=== PATIENT | female | born 1990 | race Caucasian/White ===

== ENCOUNTER 2017-02-21 20:16 | Emergency (ER) | payer OTHER ==
[2017-02-21] MEDS ORDERED: HYDROcod/ACET 5/325 Prepack 6 PO STA (20:55)
[2017-02-21] MEDS ORDERED: ERYTHROMYCIN OPHTH OINT 1 GM TUBE RIGHTEYE STA (20:55)
[2017-02-21] MEDS ORDERED: HYDROcod/ACET 5/325 Prepack 6 PO ONE (21:00)
[2017-02-21] MEDS ORDERED: ERYTHROMYCIN OPHTH OINT 1 GM TUBE ONE (21:00)
== END 2017-02-21 21:08 | disposition home or self-care (01) ==
DX: S05.01XA Injury of conjunctiva and corneal abrasion without foreign body, right eye, initial encounter (principal); W50.4XXA Accidental scratch by another person, initial encounter; Y93.F9 Activity, other caregiving; Y92.210 Daycare center as the place of occurrence of the external cause; Y99.0 Civilian activity done for income or pay; R03.0 Elevated blood-pressure reading, without diagnosis of hypertension
CPT/HCPCS: 99283; J3490

== ENCOUNTER 2020-01-02 14:23 | Outpatient (CLI) | payer OTHER ==
--- NOTE | 2020-01-03 23:24 | Ultrasound Report ---
Reason: GESTATIONAL DIABETES Procedure Date: 01/02/2020 Accession Number: [id number] / [id number] Procedure: US - OB F/U or Repeat CPT Code: Final Report FULL RESULT: EXAM: FOLLOW-UP OBSTETRICAL ULTRASOUND EXAM DATE: 01/02/2020 03:19 PM. CLINICAL HISTORY: GESTATIONAL DIABETES. COMPARISON: Prior report, 09/16/2019. TECHNIQUE: Real-time sonographic evaluation of the fetus performed by the draw fire operator. Multiple arborist representative static images were saved for review. DATING: Established EGA 35 weeks 3 days with HUSAM 02/03/2020 based on LMP. EGA 34 weeks 5 days with HUSAM 02/08/2020 based on prior ultrasound. EGA 34 weeks 3 days with HUSAM 02/10/2020 based on the current ultrasound. GENERAL EVALUATION [place] . Cardiac activity: 136 bpm. movement: Visualized. Presentation: Cephalic. Placenta: Posterior left position. Amniotic fluid: Normal. MANUEL 8.2 cm. MVP 2.7 cm. BIOMETRY Bi-Parietal Diameter (BPD): 8.7 cm, 35 weeks 1 day Head Circumference (HC): 31.2 cm, 34 weeks 6 days Abdominal Circumference (AC): 30.4 cm, 34 weeks 3 days Femur Length (FL): 6.5 cm, 33 weeks 2 days Estimated Weight: 2377 g, 18 percentile for 35 weeks 3 days. MATERNAL STRUCTURES Cervix: Long and closed, measuring 4.8 cm on transabdominal images. Small complex cystic focus in the cervix measuring 0.9 x 1.3 x 1.1 cm. IMPRESSION: 1. Bonilla live intrauterine with gestational age 35 weeks 3 days based on stated dates. 2. Estimated weight is within expected limits for assigned dating. 3. Normal interval growth compared to 09/16/2019. 4. MANUEL 8.2 cm. RADIA
== END 2020-01-02 14:24 | disposition home or self-care (01) ==
LOC: DI 14:23
PROVIDERS: ATTEND Nurse Practitioner Obstetrics & Gynecology
DX: O24.410 Gestational diabetes mellitus in pregnancy, diet controlled (principal); Z3A.35 35 weeks gestation of pregnancy
CPT/HCPCS: 76816

== ENCOUNTER 2020-01-05 23:26 | Outpatient (CLI) | payer OTHER ==
[2020-01-06 00:13] VITALS: BP 96/75
--- NOTE | 2020-01-06 00:16 | Labor Flowsheet ---
Labor Flowsheet Datetime Report Generated by CPN: 01/06/2020 00:16 Datetime: 01/06/2020 00:12 VITAL SIGNS NBP Sys/Cyndee/Mean (mmHg): 96 : 75 : 79 Pulse: 106 Datetime: 01/06/2020 00:09 SpO2 (%): 98
--- NOTE | 2020-01-06 00:44 | PROVIDER PROGRESS NOTE ---
- HPI Chief Complaint: Other Current : Current EDU 02/03/20 Gestation 35 Weeks and 6 Days 3 Para 1 Vital Signs Temperature 36.5 C 01/05/20 23:36 Heart Rate 99 01/05/20 23:36 Respiratory Rate 16 01/05/20 23:36 Blood Pressure 111/69 01/05/20 23:36 O2 Saturation 98 01/05/20 23:36 Temperature 36.8 C 01/06/20 00:12 Heart Rate 107 H 01/06/20 00:12 Respiratory Rate 16 01/06/20 00:12 Blood Pressure 96/75 01/06/20 00:12 O2 Saturation 96 01/06/20 00:12 - Procedures OB Procedure Performed: NST Diagnosis/Indication for NST: Other - Plan Plan: Neda presents to [facility] with complaints of feeling significantly increased vaginal pressure when getting up to go to the bathroom a couple of hours ago. She reports after urinating she was wiping and felt like her vagina/labia was very swollen and felt a bulge in her vagina. She denies vaginal bleeding or leakage of fluid and reports +FM. She reports occasional contractions but nothing consistently or overly uncomfortable. She delivered her first baby at 41+wks. Upon examination there is noted to be a swollen area immediately inside vaginal introitus extending into the vaginal canal towards pt left that is slightly bluish in color and tender upon palpation. Pt reports the discomfort and pressure at affected area seems to be aggravated by sitting on the toilet. NST reactive. FHR baseline 130s, moderate variability, + accels, no decels. 1-2 contractions appreciated via tocometry which pt appreciates but rates as very mild. DIAGNOSIS: Vulvar variscosity Advised V2 maternity support belt or doubling up with a pad and wearing good fitting underwear. Advised ice and witch radha to affected area. Avoid constipation - stool softener if needed. Given precautions to return if she feels the discomfort is worsening or if she develops a fever or radiating pain. Consider physician consultation in office. Return for scheduled office visit or sooner PRN. Pt verbalized understanding and agrees to above plan. She denies further questions or concerns at this time.
== END 2020-01-06 00:23 | disposition home or self-care (01) ==
LOC: WFO 23:26 → FBP 23:28 → WFO 01-06 00:23
PROVIDERS: ATTEND Nurse Practitioner Obstetrics & Gynecology
DX: O22.13 Genital varices in pregnancy, third trimester (principal); Z3A.35 35 weeks gestation of pregnancy
CPT/HCPCS: 99213

== ENCOUNTER 2020-01-08 08:00 | Outpatient (CLI) | payer OTHER ==
[2020-01-08 23:01] LABS: TRICHOMONAS VAGINALIS DNA NEGATIVE (NEGATIVE)
== END 2020-01-08 08:01 | disposition home or self-care (01) ==
LOC: LAB.R 08:00
PROVIDERS: ATTEND Nurse Practitioner Obstetrics & Gynecology
DX: Z36.85 Encounter for antenatal screening for Streptococcus B (principal)
CPT/HCPCS: 87491; 87591; 87661; 87797

== ENCOUNTER 2020-01-27 13:51 | Inpatient (IN) | payer OTHER ==
[2020-01-27] MEDS ORDERED: SODIUM CHLORIDE FLUSH 0.9% 10 ML SYRINGE IVP PRN (14:37)
[2020-01-27] MEDS: LACTATED RINGERS 1,000 ML IV SCH (14:53)
[2020-01-27 14:55] LABS: BASOPHILS % (AUTO) 0.3 %; EOSINOPHILS % (AUTO) 0.4 %; HGB - HEMOGLOBIN 12.7 g/dL (12.0-16.0); LYMPHOCYTES # (AUTO) 1.4 10^3/uL (1.5-3.5); MEAN CORPUSCULAR HGB CONC 34.1 g/dL (32.0-36.0); MEAN CORPUSCULAR VOLUME 93.7 fL (81.0-99.0); MEAN PLATELET VOLUME 11.1 fL (7.9-10.8); MONOCYTES # (AUTO) 0.5 10^3/uL (0.0-1.0); MONOCYTES % (AUTO) 6.4 %; NEUTROPHILS # (AUTO) 5.3 10^3/uL (1.5-6.6); NEUTROPHILS % (AUTO) 73.3 %; PLT - PLATELET COUNT 194 10^3/uL (130-450); RED BLOOD COUNT 3.97 10^6/uL (4.20-5.40); RED CELL DISTRIBUTION WIDTH 14.2 % (12.0-15.0); WHITE BLOOD COUNT 7.2 x10^3/uL (4.8-10.8)
--- NOTE | 2020-01-27 15:28 | HISTORY & PHYSICAL EXAMINATION ---
Admit History - Visit Reason Visit Reason: Other - : 3 Parity: 1 Premature: 0 Ectopic: 0 : 1 Care: positive: [facility] Risk/History: positive: Labor induction Complications This : positive: Gestational diabetes Smoking Status: Never smoker - Mother's Labs Mother's Blood Type: positive: O Mother's RH: positive: Positive GBS: positive: Group B Strep Positive Rubella Status: positive: Immune - Other Maternal History Other Maternal History: Neda is a 29yo at 39.0wks gestation by LMP and confirmed by 10.5wk Ultrasound who presents for pre-induction cervical ripening for Gestational Diabetes which is well controlled with diet. She had an otherwise normal course of care with [facility]. She is not experiencing VB, LOF, or contractions (reports some mild, intermittent tightening consistent with [place]). Dating Criteria: LMP: 02/03/2020 Initial US: 10.5wks 02/03/2020 FAS: WNL. Placenta posterior, no previa. Three vessel cord. Size consistent with dating. OB Hx G1 2013- molar requiring D&C G2-2018- 7# female G3-Current No known Allergies Medications: vitamins Other PRN comfort measures Medical History: Bilateral sciatica Molar Surgical History: Dilation and Curettage 2013 Family History: None relevant Social History: Never smoker, no ETOH Spouse: Active Duty Labs: 0 pos/Rubella Immune GC/CT neg Genetic Screening- Serum Intg- neg/ CF- neg Glucola: 165; 3h GTT diagnosis- GDM GBS- POS Immunizations: Tdap given Physical Exam: Head: normochephalic, atraumatic Heart: No edema Resp: No resp distress, cough, sore throat, or work of breathing Abdomen: gravid, soft, nontender EFW 7.5# by leronan Vertex by BSUS SVE: closed/75%/soft/posterior/ballotable No contractions FHT: 130s/moderate variability/pos accels/no decels Assessment: 29yo at 39.0wks gestation A1 GDM Medical induction of labor FHTs Cat 1 GBS pos Plan: Admit to Observation for pre-induction cervical ripening until active labor, SROM, AROM, epidural, or pitocin. 50mcg BC Miso every 4 hours per protocol Continuous fht/utx monitoring Consider placement of cervical ripening balloon at next check May eat/drink/ambulate as desired. Epidural PRN. Anticipate Meds/Allgy - Home Medications Home Medications: Ambulatory Orders Medication Instructions Recorded Confirmed Erythromycin Base [Erythromycin] 1 applic OP 5XD 7 Days oint...g. 02/21/17 - Allergies Allergies/Adverse Reactions: Allergies Allergy/AdvReac Type Severity Reaction Status Date / Time No Known Drug Allergies Allergy Verified 02/21/17 20:27 Review of Systems - Constitutional Constitutional: denies: Fatigue, Fever, Chills - Eyes Eyes: denies: Pain, Blurred vision, Spots in vision, Dipolpia - Ears, Nose & Throat Ears, Nose & Throat: denies: Hearing loss, Nasal discharge, Nosebleeds, Sore throat - Cardiovascular Cariovascular: denies: Irregular heart rate, Palpitations, Chest pain - Respiratory Respiratory: denies: Cough, Wheezing, SOB at rest, SOB with exertion - Gastrointestinal Gastrointestinal: denies: Abdominal pain - Neurological Neurological: denies: General weakness, Focal weakness, Headache, Dizziness - Psychiatric Psychiatric: denies: Depression, Anxiety Plan for Labor - Plan For Labor I expect patient to be DC'd or transferred within 96 hours.: Yes
[2020-01-27] MEDS: miSOPROStoL 100 MCG TABLET BC SCH ×2 (15:58→22:09)
[2020-01-28] MEDS: LACTATED RINGERS 1,000 ML IV SCH ×2 (00:17→07:35)
[2020-01-28] MEDS ORDERED: AMPICILLIN 2 GM in SODIUM CHLORIDE 0.9% MINIBAG 100 ML IV ONE (01:48)
[2020-01-28] MEDS ORDERED: ROPIVACAINE 0.2% 200 MG/100 ML BAG EP ONE (01:59)
[2020-01-28] MEDS ORDERED: OXYTOCIN/SODIUM CHLORIDE 500 ML IV SCH (02:00)
[2020-01-28] MEDS ORDERED: ROPIVACAINE 0.2% PF 20ML VIAL ONE (02:00)
[2020-01-28] MEDS ORDERED: NALOXONE 0.4 MG/ML VIAL IVP PRN (02:42)
[2020-01-28] MEDS ORDERED: METOCLOPRAMIDE 10 MG/2 ML VIAL IVP PRN (02:42)
[2020-01-28] MEDS ORDERED: ROPIVACAINE 0.2% 200 MG/100 ML BAG EP PRN (02:42)
[2020-01-28] MEDS ORDERED: diphenhydrAMINE INJ 50 MG/ML VIAL IVP PRN (02:42)
[2020-01-28] MEDS ORDERED: ONDANSETRON 4 MG/2 ML VIAL IVP PRN (02:42)
[2020-01-28] MEDS ORDERED: ePHEDrine 50 MG/ML VIAL IVP PRN (02:42)
[2020-01-28] MEDS ORDERED: NALBUPHINE 10 MG/ML AMP IVP PRN (02:42)
[2020-01-28] MEDS ORDERED: LACTATED RINGERS 500 ML IV ONE ×2 (02:42→14:42)
--- NOTE | 2020-01-28 02:45 | ANESTHESIA ---
Pre-Anesthesia VS, & Labs - Diagnosis term labor, IUP - Procedure vaginal delivery Vital Signs: Temp Pulse Resp BP Pulse Ox 36.7 C 80 16 119/73 01/28/20 01:00 01/28/20 01:00 01/28/20 01:00 01/28/20 01:00 Height 5 ft 3 in Weight (kg) 72.575 kg Body Mass Index 22.6 - NPO Last Fluid Intake: t/o noc Last Food Intake: 6h - Is Patient ?: Yes - Lab Results Current Lab Results: Laboratory Tests 01/27/20 14:30: WBC 7.2, RBC 3.97 L, Hgb 12.7, Hct 37.2, MCV 93.7, MCH 32.0 H, MCHC 34.1, RDW 14.2, Plt Count 194, MPV 11.1 H, Neut # (Auto) 5.3, Lymph # (Auto) 1.4 L, [place] # (Auto) 0.5, Eos # (Auto) 0.0, Baso # (Auto) 0.0, Absolute Nucleated RBC 0.00, Nucleated RBC % 0.0 Lab results reviewed: Yes Fish Bones: 01/27/20 14:30 Home Medications and Allergies Active Medications Lactated Ringer's (Lr) 1,000 mls @ 100 mls/hr IV .Q10H SOLANGE Last Admin: 01/28/20 00:17 Dose: 100 mls/hr Ampicillin Sodium 2 gm/ Sodium (Chloride) 100 mls @ 100 mls/hr IV ONCE ONE Stop: 01/28/20 02:47 Ampicillin Sodium 1 gm/ Sodium (Chloride) 100 mls @ 200 mls/hr IV Q4H SOLANGE Oxytocin/Sodium Chloride (Pitocin/Sodium Chloride) 500 mls @ 1 mls/hr IV TITR SOLANGE; Protocol Misoprostol (Cytotec) 50 mcg BC Q4H SOLANGE Last Admin: 01/27/20 22:09 Dose: 50 mcg Sodium Chloride (Normal Saline Flush 0.9%) 10 ml IVP PRN PRN PRN Reason: NEEDED PER PROVIDER ORDERS Last Admin: 01/27/20 14:30 Dose: 10 ml Allergies/Adverse Reactions: Allergies Allergy/AdvReac Type Severity Reaction Status Date / Time No Known Drug Allergies Allergy Verified 02/21/17 20:27 Anes History & Medical History - Anesthetic History Anesthesia Complications: reports: No previous complications Family history of Anesthesia Complications: Denies Family history of Malignant Hyperthermia: Denies - Medical History Smoking Status: Never smoker - Surgical History Gynecologic: Dilation and currettage - Obstetrical History : 3 Parity: 1 Events: positive: Labor induction Complications: positive: Gestational diabetes Exam General: Alert, Oriented x3, Cooperative Dental: WNL Mouth Opening: Greater than 4 Fingerbreadths Neck Mobility: Normal Mallampati classification: I Thyromental Distance: greater than 6 cm Respiratory: No respiratory distress Cardiovascular: Regular rate Neurological: Normal speech Mental/Cognitive Status: Alert/Oriented X3, Normal for patient Cognitive Status: Within normal limits Plan Anesthesia Type: Epidural Consent for Procedure(s) Verified and Reviewed: Yes Code Status: Attempt Resuscitation ASA classification: 2-Mild systemic disease Is this case an emergency?: No
[2020-01-28] MEDS: AMPICILLIN 1 GM in SODIUM CHLORIDE 0.9% MINIBAG 100 ML IV SCH ×2 (06:49→10:58)
--- NOTE | 2020-01-28 07:15 | PROVIDER PROGRESS NOTE ---
Labor Progress Note - Uterine Monitoring Uterine Monitoring Mode: positive: External toco Contraction Frequency (min/apart): 3-4 Contraction Intensity: positive: Moderate Uterine Resting Tone: positive: Soft - Monitoring Monitor Mode: positive: External ultrasound Heart Rate Baseline: 135 Heart Rate Variability: positive: Moderate (6-25 bmp) Accelerations: positive: Present, 15x15 Decelerations: positive: None Strip Review: positive: Category I - Vaginal Exam Dilation (in cm): 5 Effacement (%): 80 Station: -3 Cervical Position: Anterior - Labor Progress Note Labor Progress Note/Additional Text: S: Pt resting in bed, reports satisfaction with her epidural. supportive at the bedside. O: Uterine contractions regular and moderate strength. FHTs (see above). Afebrile. Pitocin started at 1mU/min at 0650. SVE: 5/80%/-3/soft/anterior A: 29yo at 39.1wks gestation GBS Positive Status post 2 doses misoprostol for IOL r/t GDM FHTs Cat I Uterine contractions moderate P: Continue to augment labor with Pitocin administration per protocol Consider AROM when station appropriate Continue GBS prophylaxis per protocol Continuous monitoring Clear liquids Continue epidural for pain management Anticipate
--- NOTE | 2020-01-28 08:58 | PROVIDER PROGRESS NOTE ---
Labor Progress Note - Uterine Monitoring Uterine Monitoring Mode: positive: External toco Contraction Frequency (min/apart): 2-3 Contraction Intensity: positive: Moderate - Monitoring Monitor Mode: positive: External ultrasound Heart Rate Baseline: 155 Heart Rate Variability: positive: Moderate (6-25 bmp) Accelerations: positive: Present, 15x15 Decelerations: positive: Late, Variable, Intermittent (<50% x20 min) Strip Review: positive: Category I - Vaginal Exam Dilation (in cm): 6 Effacement (%): 80 Station: 0 Cervical Position: Anterior - Labor Progress Note Labor Progress Note/Additional Text: S: Comfortable with epidural. Rotating to right side as she has been lying on her left side. She is feeling well and denies concerns or complaints at this time. supportive at the bedside. O: FHR baseline 150s, moderate variability, + accels, intermittent late and variable decelerations. Brief periods of and maternal tachycardia - overall reassuring. Contractions palpate moderate every 2-3 minutes with soft resting tone. Pitocin @ 1mU/mL SVE 6/80/0, vertex AROM moderate amount of clear fluid at 0852 A: 29yo G3)1011 @ 39.1wks gestation A1GDM GBS pos FHR Category II - overall reassuring P: Continue pitocin for IOL with titration per protocol Continue GBS prophylaxis per protocol Continuous monitoring Anticipate .
--- NOTE | 2020-01-28 10:11 | PROVIDER PROGRESS NOTE ---
Labor Progress Note - Uterine Monitoring Uterine Monitoring Mode: positive: External toco Contraction Frequency (min/apart): 2-3 Contraction Intensity: positive: Strong Uterine Resting Tone: positive: Soft - Monitoring Monitor Mode: positive: External ultrasound Heart Rate Baseline: 145 Heart Rate Variability: positive: Moderate (6-25 bmp) Accelerations: positive: Present, 15x15 Decelerations: positive: None Strip Review: positive: Category I - Vaginal Exam Dilation (in cm): 8-9 Effacement (%): 100 Station: 0 Cervical Position: Anterior - Labor Progress Note Labor Progress Note/Additional Text: S: Comfortable with epidural. Positioned to high thrones position after examination. Feeling well. supportive at the bedside. O: FHR baseline 140s, moderate variability, + accels, recurrent early decelerations - overall reassuring Contractions palpate strong every 2-3 minutes with soft resting tone SVE 8-9/100/0, vertex A: 29yo @ 39.1wks gestation A1GDM FHR Category I GBS positive P: Continue pitocin with titration per protocol Continue GBS prophylaxis per protocol Continuous monitoring Encouraged position changes in bed with peanut ball Anticipate
[2020-01-28] MEDS ORDERED: WITCH HAZEL/GLYCERIN 1 PAD TOP PRN (11:50)
[2020-01-28] MEDS ORDERED: HYDROCORTISONE 1% CREAM 28 GM TUBE PR PRN (11:50)
[2020-01-28] MEDS ORDERED: OXYTOCIN/SODIUM CHLORIDE 500 ML IV PRN (11:51)
--- NOTE | 2020-01-28 12:00 | DELIVERY NOTE ---
Delivery Note - Labor Labor: positive: Augmented by ARM, Induced by oxytocin - Delivery Method Infant Delivery Method: positive: Spontaneous vaginal delivery - Cervical Ripening Method Cervical Ripening Method: positive: Balloon device - Presentation Presentation: positive: Vertex, VIVI - left occiput anterior - Nuchal Cord Nuchal Cord: positive: None - Amniotic Fluid Description Amniotic Fluid Description: positive: Clear - Episiotomy Type Episiotomy Type: positive: None - Laceration Laceration: positive: None - Delivery Outcome Delivery Outcome: positive: Livebirth - [place] : positive: Placed in direct skin contact with mother, Stimulated, Warmed, [place] used Beatty sex: positive: Male - Cord Cord: positive: 3 vessels - Placenta Placenta: positive: Intact, Spontaneous - Estimated Blood Loss Estimated Blood Loss (in cc): 200 - Post Delivery Events Post Delivery Events: positive: No post delivery events - Delivery Comments (Free Text/Narrative) Delivery Comments (Free Text/Narrative): Labor: This 29yo @ 39.1wks gestation by LMP c/w first trimester ultrasound presented on 01/27/2020 @ 1400 for medication induction of labor secondary to gestational diabetes which remained well controlled through the duration of her . SVE 2/50/-3, posterior, and vertex. Pt received 2 total doses of 50mcg BC misoprostol for effective pre-induction cervical ripening. Epidural placed per maternal request. Pitocin initiated for labor augmentation with a maximum infusion rate of 1mU/mL. AROM occurred at approximately 0852 and and was noted to be a moderate amount of clear fluid. FHR pattern demonstrated Category I pattern with intermittent periods of Category II but was overall reassuring. Normal labor course. The patient progressed to c/c/+1 at 1123. : Normal of viable male on 01/28/2020 @ 1137. No nuchal cord. The was stimulated, dried, and placed skin to skin. 's were 9/9 at 1 and 5 min respectively. The umbilical cord was allowed to stop pulsating at which time it was doubly clamped by CNM and cut by FOB. Pitocin administered via IV for hemostasis. Cord blood was obtained. 3VC. EBL 200mL. Fourth stage: Uterine fundus firm and there is no excessive bleeding. The perineum, vagina, and cervix were inspected and found to be intact. Labial and vaginal varicosities noted. Skin to skin initiated. Family bonding well. Both mother and baby were left in stable condition.
[2020-01-28] MEDS: IBUPROFEN 800 MG TABLET PO SCH ×2 (12:28→19:04)
[2020-01-28] MEDS ORDERED: miSOPROStoL 100 MCG TABLET PO SCH (13:30)
[2020-01-28] MEDS ORDERED: miSOPROStoL 200 MCG TABLET PO SCH (13:30)
[2020-01-28] MEDS ORDERED: miSOPROStoL 200 MCG TABLET PR ONE (13:30)
[2020-01-28] MEDS ORDERED: miSOPROStoL 200 MCG TABLET ONE (13:37)
[2020-01-28] MEDS ORDERED: METHYLERGONOVINE 0.2 MG/ML VIAL ONE (13:51)
[2020-01-28] MEDS ORDERED: METHYLERGONOVINE 0.2 MG/ML VIAL IM ONE (14:33)
--- NOTE | 2020-01-28 14:33 | PROVIDER PROGRESS NOTE ---
Subjective - Prog Note Date Prog Note Date: 01/28/20 Prog Note Time: 14:21 - Subjective Subjective: Called to bedside for excessive vaginal bleeding . S/P uncomplicated at 11:37 today, no lacerations, EBL 200cc. Pt underwent IOL at 39 weeks secondary to diet controlled GDM. She received miso x2 overnight. AROM was done at 0830 and pitocin was started at 1mu/min and remained at this rate. She delivered after 6 minutes of pushing. Epidural was DC'd. She got up to BR when bleeding and cramping occurred. RN's report 200cc clot and blood on pad, 400 mixed with urine in toilet hat. Pt denies dizziness. Per order, a second bag of pitocin was started and she was give miso 400mcg PO and 400 UT VSS afeb Abd soft, uterus boggy 2cm above umbilicus VE/ 400cc clot evacuated from lower uterus. Unable to reach to fundus but no evidence of retained placenta. Bedside US done, normal stripe identified, no collections A/P Hemodynamically stable Observe closely. Continue pitocin Add methergine as needed Rpt H&H Objective - Vital Signs/Intake & Output Vital Signs: Vital Signs x48h Temp Pulse Resp BP Pulse Ox 01/28/20 14:00 98.8 F 84 18 103/67 100 Intake & Output: Intake & Output 01/25/20 01/26/20 01/27/20 01/28/20 23:59 23:59 23:59 23:59 Intake Total 400 4770 Output Total 450 Balance 400 4320 - Lab Results Fish Bones: 01/27/20 14:30 Other Labs: Lab Results x24hrs 01/27/20 Range/Units 14:30 WBC 7.2 (4.8-10.8) x10^3/uL RBC 3.97 L (4.20-5.40) 10^6/uL Hgb 12.7 (12.0-16.0) g/dL Hct 37.2 (37.0-47.0) % MCV 93.7 (81.0-99.0) fL MCH 32.0 H (27.0-31.0) pg MCHC 34.1 (32.0-36.0) g/dL RDW 14.2 (12.0-15.0) % Plt Count 194 (130-450) 10^3/uL MPV 11.1 H (7.9-10.8) fL Neut # (Auto) 5.3 (1.5-6.6) 10^3/uL Lymph # (Auto) 1.4 L (1.5-3.5) 10^3/uL [place] # (Auto) 0.5 (0.0-1.0) 10^3/uL Eos # (Auto) 0.0 (0.0-0.7) 10^3/uL Baso # (Auto) 0.0 (0.0-0.1) 10^3/uL Absolute Nucleated RBC 0.00 x10^3/uL Nucleated RBC % 0.0 /100WBC
[2020-01-28] MEDS ORDERED: LACTATED RINGERS 1,000 ML IV SCH (14:44)
[2020-01-28 16:24] LABS: HGB - HEMOGLOBIN 12.9 g/dL (12.0-16.0)
[2020-01-28] MEDS: ACETAMINOPHEN 500 MG TABLET PO SCH (19:04)
[2020-01-28] MEDS ORDERED: DOCUSATE SODIUM 100 MG CAPSULE PO SCH (21:00)
[2020-01-29] MEDS: IBUPROFEN 800 MG TABLET PO SCH ×2 (04:23→11:23)
[2020-01-29 05:53] LABS: HGB - HEMOGLOBIN 12.1 g/dL (12.0-16.0); MEAN CORPUSCULAR HEMOGLOBIN 31.9 pg (27.0-31.0); MEAN CORPUSCULAR VOLUME 96.8 fL (81.0-99.0); MEAN PLATELET VOLUME 10.8 fL (7.9-10.8); RED BLOOD COUNT 3.79 10^6/uL (4.20-5.40); RED CELL DISTRIBUTION WIDTH 14.4 % (12.0-15.0); WHITE BLOOD COUNT 10.4 x10^3/uL (4.8-10.8)
--- NOTE | 2020-01-29 10:36 | PROVIDER PROGRESS NOTE ---
Subjective - Subjective Subjective: S: Bonding well with baby. She is without difficulty and her pain is well controlled with minimal use of ibuprofen and tylenol throughout the night. She states her bleeding has decreased and is now light. She denies dizziness or light headedness following increased blood loss 2 hours . She strongly desires to be discharged home today. is supportive at the bedside. O: BP 102/61, T 36.8, HR 84, RR 16 Hgb 12.7-->12.1; Hct 37.2-->36.7; PLT 194-->148 Heart RRR w/o M/G/R, lungs CTAB, abdomen soft and nontender with fundus firm at U-1. Perineum intact. Light lochia rubra. Bilateral LE's no edema. A: 29yo -->P2 PPD#1 s/p TSVD viable male infant Acute blood loss 2 hours - currently hemodynamically stable and asymptomatic. Perineum intact at delivery P: Reviewed care and warning s/sx with specific instructions for when to contact for increased blood loss secondary to her bleeding 2 hours . Advised continuation of PNV while . Advised continuation of ibuprofen and tylenol OTC as needed for pain management. Reviewed patient status with pensions retirement plan specialist physician. Will monitor until minimum 24 hours and then evaluate for discharge home at that time. Pt verbalized understanding and agrees to above plan. She denies further questions or concerns at this time. Objective - Vital Signs/Intake & Output Vital Signs: Vital Signs x48h Temp Pulse Resp BP Pulse Ox 01/29/20 07:51 36.7 C 71 18 93/52 L 97 01/29/20 04:29 36.8 C 71 18 94/65 100 Intake & Output: Intake & Output 01/26/20 01/27/20 01/28/20 01/29/20 23:59 23:59 23:59 23:59 Intake Total 400 6770 Output Total 2725 Balance 400 4045 - Lab Results Fish Bones: 01/29/20 05:35 Other Labs: Lab Results x24hrs 01/29/20 01/28/20 Range/Units 05:35 16:00 WBC 10.4 (4.8-10.8) x10^3/uL RBC 3.79 L (4.20-5.40) 10^6/uL Hgb 12.1 12.9 (12.0-16.0) g/dL Hct 36.7 L 38.5 (37.0-47.0) % MCV 96.8 (81.0-99.0) fL MCH 31.9 H (27.0-31.0) pg MCHC 33.0 (32.0-36.0) g/dL RDW 14.4 (12.0-15.0) % Plt Count 148 (130-450) 10^3/uL MPV 10.8 (7.9-10.8) fL
[2020-01-29] MEDS: ACETAMINOPHEN 500 MG TABLET PO SCH (11:24)
--- NOTE | 2020-01-29 11:54 | PROVIDER PROGRESS NOTE ---
Subjective - Subjective Subjective: FINAL PROGRESS NOTE: Pt feeling well and she desires to go home. She is asymptomatic and hemodynamically stable. Consulted with group contract analyst physician who is in agreement with discharging patient to home. Objective - Vital Signs/Intake & Output Vital Signs: Vital Signs x48h Temp Pulse Resp BP Pulse Ox 01/29/20 07:51 36.7 C 71 18 93/52 L 97 01/29/20 04:29 36.8 C 71 18 94/65 100 Intake & Output: Intake & Output 01/26/20 01/27/20 01/28/20 01/29/20 23:59 23:59 23:59 23:59 Intake Total 400 6770 Output Total 2725 Balance 400 4045 - Lab Results Fish Bones: 01/29/20 05:35 Other Labs: Lab Results x24hrs 01/29/20 01/28/20 Range/Units 05:35 16:00 WBC 10.4 (4.8-10.8) x10^3/uL RBC 3.79 L (4.20-5.40) 10^6/uL Hgb 12.1 12.9 (12.0-16.0) g/dL Hct 36.7 L 38.5 (37.0-47.0) % MCV 96.8 (81.0-99.0) fL MCH 31.9 H (27.0-31.0) pg MCHC 33.0 (32.0-36.0) g/dL RDW 14.4 (12.0-15.0) % Plt Count 148 (130-450) 10^3/uL MPV 10.8 (7.9-10.8) fL
--- NOTE | 2020-01-29 11:55 | Discharge Plan ---
Discharge Plan Problem Reviewed?: Yes Disposition: Home, Self Care Condition: Good Diet: Regular Activity Restrictions: No Restrictions Shower Restrictions: No Weight Bearing: Full Weight No Smoking: If you smoke, Please STOP! Call for help. Follow-up with: Wendy Wadsworth ARNP [Provider Admit Priv/Credential] -
--- NOTE | 2020-01-29 12:12 | DISCHARGE SUMMARY ---
Physician: ZORAIDA Nance DATE OF ADMISSION: 01/27/2020 DATE OF DISCHARGE: 01/29/2020 DIAGNOSES ON ADMISSION 1. A 29-year-old G3, P1-0-0-1, at 39.0 weeks' gestation. 2. A1 gestational diabetes, well controlled. 3. Group B streptococcus positive. 4. Medical induction of labor. DIAGNOSES ON DISCHARGE 1. A 29-year-old G3, P2-0-0-2, day #1 status post spontaneous vaginal delivery on 01/28/2020. 2. Acute blood loss following delivery; currently hemodynamically stable and asymptomatic. 3. Normal recovery. HISTORY OF PRESENT ILLNESS: She is a patient of [facility] who presented on 01/27/2020 at 1400 for medical induction of labor secondary to gestational diabetes. Upon arrival, her cervix was 2 cm dilated, 50% effaced, - 3 station, posterior position and vertex. The patient received 2 total doses of 50 mcg buccal misoprostol for effective preinduction cervical ripening. Epidural placed per maternal request. Pitocin initiated for labor augmentation with a maximum infusion rate of 1 milliunit per mL. Artificial rupture of membranes was noted to be a moderate amount of clear fluid. heart rate pattern demonstrated category 1 pattern with intermittent periods of category 2, but was overall reassuring. Normal spontaneous vaginal delivery of a male on 01/28/2020 at 1137. Apgars were 9 and 9 at one and five minutes, respectively. EBL 200 mL. Perineum was noted to be intact. Two hours , she was noted to have increased rate of bright red vaginal bleeding with clotting noted. Manual evacuation of the uterus was completed by on-call physician. Total EBL estimated to be 900 mL. Patient remained hemodynamically stable and asymptomatic through the remainder of her stay. She has been doing well otherwise in her course. She is ambulating and tolerating a regular diet. She is urinating without difficulty and her lochia is normal. Her pain is well controlled with oral medications. She will be discharged home today on day #1 with instructions to continue her vitamin while , and to continue ibuprofen and Tylenol [id number] as needed for pain management. She has been given specific precautions for bleeding secondary to her acute blood loss following delivery. She intends to follow up with myself at [facility] in 6 weeks for routine visit or sooner if needed. She has been given precautions to call if she has any worsening fevers, chills, abdominal pain, increased bleeding or foul-smelling vaginal lochia. TD: 01/29/2020 12:02 MTDTimur
[2020-01-29 14:38] VITALS: BP 104/59
--- NOTE | 2020-01-29 14:45 | Labor Flowsheet ---
Labor Flowsheet Datetime Report Generated by CPN: 01/29/2020 14:45 Datetime: 01/29/2020 13:22 VITAL SIGNS NBP Sys/Cyndee/Mean (mmHg): 104 : 59 : 68 Pulse: 70 Datetime: 01/28/2020 14:00 Respirations: 18 SpO2 (%): 100 Datetime: 01/28/2020 12:30 PAIN Pain Scale: 2 Pain Presence: Intermittent Pain Type: Cramping Pain Location: Abdomen Pain Relief Measures: Pain Medication Given Datetime: 01/28/2020 11:38 Stage of : Recovery Datetime: 01/28/2020 11:37 UTERINE ACTIVITY Monitor Mode: External Frequency (min): 1.5-2 Quality: Moderate Duration (sec): 70-80 Pattern: Normal: <= 5 Contractions in 10 Minutes Resting Tone (Palpate): Relaxed ASSESSMENT A Monitor Mode: External US Variability: Moderate 6-25 bpm Decelerations: Variable Category: Category II Comments: pushing Datetime: 01/28/2020 11:34 LaborFlag: Labor Datetime: 01/28/2020 11:31 STAGE 2 Pushing Position: Pushing with Contractions Pushing Progress: Descent with Pushing Stage 2 Comments: pushing with CNM Datetime: 01/28/2020 11:30 FHR Baseline Rate : 130 Accelerations: 15X15 Datetime: 01/28/2020 11:29 Patient Care Comments: pt set up for delivery Datetime: 01/28/2020 11:23 VAGINAL EXAM Dilatation (cm): 10.0 Effacement (%): 100 Exam by: Baylee Datetime: 01/28/2020 11:22 Communication Comments: A Baylee CNM at bedside Datetime: 01/28/2020 11:01 Temperature (C): 37.0 Datetime: 01/28/2020 10:59 Antibiotics: Ampicillin IV 1 Gm Datetime: 01/28/2020 10:07 Monitor Interventions for FHR: Ultrasound Adjusted Datetime: 01/28/2020 10:04 Station: 0 Datetime: 01/28/2020 09:19 Patient Position/Activity: Right Lateral Datetime: 01/28/2020 08:48 Membrane Status: Ruptured Membranes Rupture Method: Artificial Amniotic Fluid Color: Clear Amniotic Fluid Amount: Small Amniotic Fluid Odor: Normal Datetime: 01/28/2020 08:46 COMMUNICATION Provider Notified (Name): A Baylee Datetime: 01/28/2020 08:17 PATIENT CARE IV/Blood Work: IV Bolus Started Datetime: 01/28/2020 08:14 FHR Baseline Changes: Tachycardia Datetime: 01/28/2020 07:40 Anesthesia Level Check: T8- Ribs Datetime: 01/28/2020 06:57 Pitocin Checklist: At Least 1 Acceleration of 15 bpm x 15 Seconds in 30 Minutes or Adequate Variabi lity; No More than 5 Uterine Contractions in 10 Minutes for any 20 Minute Interval Datetime: 01/28/2020 06:41 MEDICATIONS Pitocin (milliunits): Started @ Datetime: 01/28/2020 05:25 Temperature Route: Oral Datetime: 01/28/2020 05:16 Vital Sign Comments: pt asymptomatic for BP Datetime: 01/28/2020 02:45 Oxygen Method: Room Air Procedures: Sterile Vag Exam I/O Interventions: Holcomb Cath Inserted Datetime: 01/28/2020 02:28 Epidural Procedure: Loading Dose; Completed Datetime: 01/28/2020 02:07 PROCEDURE TIME OUT Procedure Type: epidural Procedure Verify: Correct Patient Identity; Correct Side and Site are Marked; Accurate Procedure Co nsent Form Datetime: 01/28/2020 02:06 ANESTHESIA Anesthesia Plans: Epidural Anesthesia Interview: E Epidural Positioning: Sitting Datetime: 01/28/2020 01:52 Anesthesia Comments: GUN NUMBER Ramos here to place epidural Datetime: 01/28/2020 01:46 Pain Coping: Breathing Through Contractions Datetime: 01/28/2020 01:30 Vaginal Bleeding: Normal Show Datetime: 01/27/2020 23:48 TEACHING Instructional Method: Verbal Plan of Care: Plan of Care Discussed; Labor Unit Routine: [place] to Room; Call [place]; Bed; Visiting Policy Labor/Induction: Labor Stages; Induction Pain Management: Pain Scale/Goals; Comfort Measures Datetime: 01/27/2020 22:09 Cervical Ripening Agents: Cytotec @ Datetime: 01/27/2020 20:08 MATERNAL ASSESSMENT Level of Consciousness: Alert Headache: Denies Breath Sounds, Left: Clear and Equal Breath Sounds, Right: Clear and Equal Nausea/Vomiting: Denies RUQ Epigastric Pain: Denies Datetime: 01/27/2020 18:02 Pain Assessment Comments: not really pain just crampy
== END 2020-01-29 13:45 | disposition home or self-care (01) | DRG 806 ==
LOC: WFO 13:51 → FBP 13:56 → WFO 14:09 → FBP 14:10 → UNDOADMIN 14:10 → FBP 14:37
PROVIDERS: ADMIT Nurse Practitioner Obstetrics & Gynecology; ATTEND Nurse Practitioner Obstetrics & Gynecology
PROC: 10E0XZZ Delivery of Products of Conception, External Approach (ICD-10-PCS; principal; 2020-01-28)
PROC: 10907ZC Drainage of Amniotic Fluid, Therapeutic from Products of Conception, Via Natural or Artificial Opening (ICD-10-PCS; 2020-01-28)
PROC: 0UC97ZZ Extirpation of Matter from Uterus, Via Natural or Artificial Opening (ICD-10-PCS; 2020-01-28)
DX: O24.420 Gestational diabetes mellitus in childbirth, diet controlled (principal); O87.8 Other venous complications in the puerperium; Z37.0 Single live birth; O72.1 Other immediate postpartum hemorrhage; O99.824 Streptococcus B carrier state complicating childbirth; Z3A.39 39 weeks gestation of pregnancy
CPT/HCPCS: 36415; 85014; 85018; 85025; 85027; A9270; J2210; J2795; J7120